=== PATIENT | female | born 1955 | race Caucasian/White ===

== ENCOUNTER 2018-12-07 13:33 | Emergency (ER) | payer BC ==
[~2018-12-07] VITALS: Ht 157.5 cm; Wt 59.0 kg
[~2018-12-07 13:33] MED LIST: IBUPROFEN600 MG PO; LEVOXYL75 MCG PO; NORCO 5-325 TA1 EACH PO
[2018-12-07] MEDS ORDERED: AMBIEN5 MG ORAL (13:46)
[2018-12-07] MEDS ORDERED: ZOLOFT25 MG ORAL (13:47)
[2018-12-07 13:51] VITALS: BP 151/83
--- NOTE | 2018-12-07 13:52 | NUR ---
ED Nurse Note: pt walked in to ED due to swelling on right 4th digit finger since yesterday. pt denies any injury. limited ROM noted due to pain. AAO x4. respirations even and non-labored noted. will wait for the further order.
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
[2018-12-07] MEDS ORDERED: Acetaminophen 500mg (ES) tab ORAL ONE (14:00)
[2018-12-07] MEDS ORDERED: NAPROXEN500 M2 ORAL (14:48)
[2018-12-07] MEDS ORDERED: IBUPROFEN600 MG ORAL (14:56)
--- NOTE | 2018-12-07 15:01 | NUR ---
Apply finger splint to Pt RT hand, 4th digit,for support.
[2018-12-07 15:11] VITALS: BP 151/83
--- NOTE | 2018-12-07 15:12 | NUR ---
ER DISCHARGE NOTE: Patient is cleared to be discharged per ERMD, pt is aox4, on room air, with stable vital signs. pt was given dc and prescription instructions, pt was able to verbalize understanding, pt id band removed. pt is able to ambulate with steady gait. pt took all belongings.
--- NOTE | 2018-12-08 10:39 | Diagnostic Imaging Report ---
Indication: Trauma to fourth digit, pain Technique: 3 views of the right fourth finger Comparison: none Findings: There is a corner fracture of the anterior base of the fourth middle phalanx. This is minimally displaced. No other acute fractures. No dislocations. Impression: Positive for fourth middle phalangeal fracture This agrees with the findings reported by the emergency room physician in the electronic medical record
== END 2018-12-07 15:11 | disposition home or self-care (01) ==
LOC: EMR 14:39
DX: S62.624A Displaced fracture of middle phalanx of right ring finger, initial encounter for closed fracture (principal); W23.0XXA Caught, crushed, jammed, or pinched between moving objects, initial encounter; Y92.9 Unspecified place or not applicable; Z88.2 Allergy status to sulfonamides; Z88.8 Allergy status to other drugs, medicaments and biological substances
CPT/HCPCS: 99284